=== PATIENT | female | born 1960 | race Caucasian/White ===

== ENCOUNTER 2019-03-14 23:16 | Emergency (ER) | payer BC, MEDICAID ==
[2019-03-14] MEDS ORDERED: Sodium Chloride 0.9% 10 ML Syringe FLUSH PRN ×2 (23:20)
[2019-03-14] MEDS ORDERED: Pantoprazole 40 MG Vial IVPUSH ONE (23:21)
[2019-03-14] MEDS ORDERED: Ondansetron 4 MG/2 ML SDV IVPUSH ONE (23:22)
[2019-03-14] MEDS ORDERED: Pantoprazole 80 MG in Sodium Chloride 0.9% 100 ML IV SCH (23:30)
[2019-03-14] MEDS ORDERED: Sodium Chloride 0.9% 1,000 ML IV SCH (23:30)
--- NOTE | 2019-03-14 23:34 | EDM.PDOC ---
ED HPI GENERAL MEDICAL PROBLEM - General Chief Complaint: Abdominal Pain Stated Complaint: GI BLEED Time Seen by Provider: 03/14/19 23:26 Source of Information: Reports: Patient, EMS, Family History Limitations: Reports: No Limitations - History of Present Illness INITIAL COMMENTS - FREE TEXT/NARRATIVE: Patient presents by EMS for coffee ground emesis x 2 days associated with generalized abdominal pain and decreased appetite. She has a h/o alcohol abuse and associated liver disease. The patient continues to consume @1L hard alcohol every 3 days. Daughter noticed her urine was dark tonight perhaps due to blood, she has also noticed that her mother's has been somewhat more confused over the last 2 days. Daughter and patient deny prior h/o GI bleed. Duration: Day(s): (2) Location: Reports: Abdomen Associated Symptoms: Reports: Nausea/Vomiting - Related Data Allergies Allergy/AdvReac Type Severity Reaction Status Date / Time Sulfa (Sulfonamide Allergy Vomiting Verified 03/15/19 00:29 Antibiotics) Home Meds: Home Meds Levothyroxine Sodium [Synthroid] 62.5 mcg PO MO 09/09/15 [History] Levothyroxine Sodium [Synthroid] 125 mcg PO SUMOTUWETHSA 09/09/15 [History] Venlafaxine [Effexor XR] 150 mg PO DAILY 09/09/15 [History] Montelukast Sodium [Singulair] 10 mg PO DAILY 03/15/19 [History] Potassium Chloride 10 meq PO DAILY 03/15/19 [History] Pravastatin Sodium 20 mg PO BEDTIME 03/15/19 [History] Past Medical History HEENT History: Reports: Other (See Below) Other HEENT History: Wears glasses. Cardiovascular History: Reports: Hypertension. 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 Psychiatric History: Reports: Depression, Other (See Below) Other Psychiatric History: ALCOHOL ABUSE Endocrine/Metabolic History: Reports: Hypothyroidism Dermatologic History: Reports: Other (See Below) Other Dermatologic History: Had a cyst in her neck area, surgically removed. Experiences dry skin. - Infectious Disease History Infectious Disease History: Reports: Chicken Pox, Mumps, Other (See Below) Other Infectious Disease History: States she had measles in the past, uncertain if Burkinan or Red. - Past Surgical History Female Surgical History: Reports: Hysterectomy, Other (See Below) Social & Family History - Family History Family Medical History: Unobtainable - Tobacco Use Smoking Status *Q: Current Every Day Smoker Tobacco Use Within Last Twelve Months: Cigarettes - Alcohol Use Alcohol Use History: Yes Alcohol Use in Last Twelve Months: Yes Alcohol Use Frequency: Daily - Recreational Drug Use Recreational Drug Use: No ED ROS GENERAL - Review of Systems Review Of Systems: ROS reveals no pertinent complaints other than HPI. ED EXAM, GI/ABD - Physical Exam Exam: See Below Exam Limited By: No Limitations General Appearance: Alert, No Apparent Distress Eyes: Bilateral: EOMI (bilateral icteric sclera) Ears: Normal External Exam Nose: Normal Inspection Throat/Mouth: No Airway Compromise Head: Atraumatic, Normocephalic Neck: Normal Inspection, Full Range of Motion Respiratory/Chest: No Respiratory Distress, Lungs Clear, Normal Breath Sounds Cardiovascular: Regular Rate, Rhythm, No Murmur GI/Abdominal Exam: Normal Bowel Sounds, Soft, Distended (mild), Tender (mild generalized). No: Guarding, Rigid, Rebound Extremities: Pedal Edema Neurological: Alert, Oriented, No Motor/Sensory Deficits Psychiatric: Flat Affect Skin Exam: Intact, Jaundice Course - Vital Signs Text/Narrative:: Triage Vitals: T96.7F, BP 107/61, HR 100, Sa02 100%RA 0115: BP 118/67, HR 104, Sa02 100%RA Last Recorded V/S: Last Vital Signs Temp 35.8 C 03/14/19 23:20 Pulse 127 H 03/14/19 23:20 Resp 18 03/14/19 23:20 BP 127/60 03/14/19 23:20 Pulse Ox 100 03/14/19 23:20 - Orders/Labs/Meds Orders: Active Orders 24 hr Category Date Time Status Foreman Catheter Insertion [Insert Urinary Catheter] [OM. Care 03/14/19 23:30 Ordered PC] Q24H Urinary Catheter Assessment [RC] QSHIFT Care 03/14/19 23:27 Active AMMONIA, PLASMA Stat Lab 03/14/19 23:40 Stop Req FRESH FROZEN PLASMA [BBK] Stat Lab 03/15/19 00:05 Received PATIENT RETYPE [BBK] Stat Lab 03/14/19 23:40 Results RED BLOOD CELLS LP [BBK] Stat Lab 03/15/19 00:07 Received TYPE AND SCREEN [BBK] Stat Lab 03/14/19 23:40 Received Pantoprazole [ProTONIX IV] 80 mg Med 03/14/19 23:30 Active Sodium Chloride 0.9% [Normal Saline] 100 ml IV .Continuous Potassium Chloride [KCL 20 MEQ in Water 100 ML] 20 meq Med 03/15/19 00:47 Active Premix Bag 1 bag IV ONETIME Sodium Chloride 0.9% [Normal Saline] 1,000 ml Med 03/14/19 23:30 Active IV ASDIRECTED Sodium Chloride 0.9% [Normal Saline] 250 ml Med 03/15/19 00:15 Active IV ASDIRECTED Sodium Chloride 0.9% [Normal Saline] 250 ml Med 03/15/19 00:15 Active IV ASDIRECTED Sodium Chloride 0.9% [Saline Flush] Med 03/14/19 23:20 Active 10 ml FLUSH ASDIRECTED PRN Sodium Chloride 0.9% [Saline Flush] Med 03/14/19 23:20 Active 10 ml FLUSH ASDIRECTED PRN Saline Lock Insert [OM.PC] Routine Oth 03/14/19 23:20 Ordered Saline Lock Insert [OM.PC] Routine Oth 03/14/19 23:20 Ordered Transfuse Fresh Frozen Plasma [COMM] Stat Oth 03/15/19 00:08 Ordered Transfuse PRBC [Transfuse Red Blood Cells] [COMM] Stat Oth 03/15/19 00:08 Ordered Medication Orders Pantoprazole Sodium 80 mg/ (Sodium Chloride) 100 mls @ 10 mls/hr IV .Continuous HEMALATHA Last Admin: 03/15/19 00:05 Dose: 10 mls/hr Sodium Chloride (Normal Saline) 1,000 mls @ 200 mls/hr IV ASDIRECTED HEMALATHA Last Admin: 03/14/19 23:45 Dose: 200 mls/hr Sodium Chloride (Normal Saline) 250 mls @ 100 mls/hr IV ASDIRECTED HEMALATHA Sodium Chloride (Normal Saline) 250 mls @ 100 mls/hr IV ASDIRECTED HEMALATHA Potassium Chloride 20 meq/ (Premix) 100 mls @ 50 mls/hr IV ONETIME ONE Stop: 03/15/19 02:46 Last Admin: 03/15/19 00:55 Dose: 50 mls/hr Sodium Chloride (Saline Flush) 10 ml FLUSH ASDIRECTED PRN PRN Reason: Keep Vein Open Last Admin: 03/14/19 23:40 Dose: 10 ml Sodium Chloride (Saline Flush) 10 ml FLUSH ASDIRECTED PRN PRN Reason: Keep Vein Open Last Admin: 03/15/19 00:15 Dose: 10 ml Labs: Laboratory Tests 03/14/19 03/14/19 03/14/19 Range/Units 23:19 23:40 23:40 WBC 13.5 H (4.5-12.0) X10-3/uL RBC 2.26 L (3.23-5.20) x10(6)uL Hgb 7.4 L (11.5-15.5) g/dL Hct 22.5 L D (30.0-51.3) % MCV 99.6 H (80-96) fL MCH 32.6 (27.7-33.6) pg MCHC 32.8 (32.2-35.4) g/dL RDW 28.6 H (11.5-15.5) % Plt Count 129 (125-369) X10(3)uL MPV 9.1 (7.4-10.4) fL Add Manual Diff Yes Neutrophils % (Manual) 50 (46-82) % Band Neutrophils % 4 (0-6) % Lymphocytes % (Manual) 38 H (13-37) % Monocytes % (Manual) 8 (4-12) % Anisocytosis Moderate H PT 18.5 H (8.7-11.1) INR 1.92 H (0.89-1.13) Sodium (135-145) mmol/L Potassium (3.5-5.3) mmol/L Chloride (100-110) mmol/L Carbon Dioxide (21-32) mmol/L BUN (7-18) mg/dL Creatinine (0.55-1.02) mg/dL Est Cr Clr Drug Dosing mL/min Estimated GFR (MDRD) (>60) BUN/Creatinine Ratio (9-20) Glucose (80-116) mg/dL Calcium (8.6-10.2) mg/dL Magnesium (1.8-2.5) mg/dL Total Bilirubin (0.1-1.3) mg/dL AST (5-25) IU/L ALT (12-36) U/L Alkaline Phosphatase (56-112) IU/L Total Protein (6.0-8.0) g/dL Albumin (3.5-5.2) g/dL Globulin g/dL Albumin/Globulin Ratio Amylase (25-115) U/L Urine Color Yellow (YELLOW) Urine Appearance Slightly cloudy (CLEAR) Urine pH 5.0 (5.0-6.5) Ur Specific [facility] 1.020 (1.010-1.025) Urine Protein Negative (NEGATIVE) mg/dL Urine Glucose (UA) Normal (NORMAL) mg/dL Urine Ketones 15 H (NEGATIVE) mg/dL Urine Occult Blood Moderate H (NEGATIVE) Urine Nitrite Negative (NEGATIVE) Urine Bilirubin Small H (NEGATIVE) Urine Urobilinogen 1 H (NEGATIVE) mg/dL Ur Leukocyte Esterase Negative (NEGATIVE) Urine RBC 5-10 H (0-5) Urine WBC 0-5 (0-5) Ur Squamous Epith Cells Few H (NS,R,O) Urine Bacteria Few H (NS) Ethyl Alcohol (<0.03) % Blood Type Gel Antibody Screen Crossmatch 03/14/19 03/14/19 03/14/19 Range/Units 23:40 23:40 23:40 WBC (4.5-12.0) X10-3/uL RBC (3.23-5.20) x10(6)uL Hgb (11.5-15.5) g/dL Hct (30.0-51.3) % MCV (80-96) fL MCH (27.7-33.6) pg MCHC (32.2-35.4) g/dL RDW (11.5-15.5) % Plt Count (125-369) X10(3)uL MPV (7.4-10.4) fL Add Manual Diff Neutrophils % (Manual) (46-82) % Band Neutrophils % (0-6) % Lymphocytes % (Manual) (13-37) % Monocytes % (Manual) (4-12) % Anisocytosis PT (8.7-11.1) INR (0.89-1.13) Sodium 131 L (135-145) mmol/L Potassium 1.7 L* (3.5-5.3) mmol/L Chloride 80 L* (100-110) mmol/L Carbon Dioxide 18 L (21-32) mmol/L BUN 7 (7-18) mg/dL Creatinine 1.4 H (0.55-1.02) mg/dL Est Cr Clr Drug Dosing 31.75 mL/min Estimated GFR (MDRD) 39 L (>60) BUN/Creatinine Ratio 5.0 L (9-20) Glucose 76 L (80-116) mg/dL Calcium 9.8 (8.6-10.2) mg/dL Magnesium 1.6 L (1.8-2.5) mg/dL Total Bilirubin 9.6 H (0.1-1.3) mg/dL AST 736 H* (5-25) IU/L ALT 190 H* (12-36) U/L Alkaline Phosphatase 129 H (56-112) IU/L Total Protein 6.7 (6.0-8.0) g/dL Albumin 3.2 L (3.5-5.2) g/dL Globulin 3.5 g/dL Albumin/Globulin Ratio 0.9 Amylase 63 (25-115) U/L Urine Color (YELLOW) Urine Appearance (CLEAR) Urine pH (5.0-6.5) Ur Specific [facility] (1.010-1.025) Urine Protein (NEGATIVE) mg/dL Urine Glucose (UA) (NORMAL) mg/dL Urine Ketones (NEGATIVE) mg/dL Urine Occult Blood (NEGATIVE) Urine Nitrite (NEGATIVE) Urine Bilirubin (NEGATIVE) Urine Urobilinogen (NEGATIVE) mg/dL Ur Leukocyte Esterase (NEGATIVE) Urine RBC (0-5) Urine WBC (0-5) Ur Squamous Epith Cells (NS,R,O) Urine Bacteria (NS) Ethyl Alcohol < 0.03 (<0.03) % Blood Type A POSITIVE Gel Antibody Screen Negative Crossmatch See Detail Meds: Medications Generic Name Dose Route Start Last Admin Trade Name Freq PRN Reason Stop Dose Admin Pantoprazole Sodium 80 mg/ 100 mls @ 10 mls/hr 03/14/19 23:30 03/15/19 00:05 Sodium Chloride IV 10 mls/hr .Continuous HEMALATHA Administration Sodium Chloride 1,000 mls @ 200 mls/hr 03/14/19 23:30 03/14/19 23:45 Normal Saline IV 200 mls/hr ASDIRECTED HEMALATHA Administration Sodium Chloride 250 mls @ 100 mls/hr 03/15/19 00:15 Normal Saline IV ASDIRECTED HEMALATHA Sodium Chloride 250 mls @ 100 mls/hr 03/15/19 00:15 Normal Saline IV ASDIRECTED HEMALATHA Potassium Chloride 20 meq/ 100 mls @ 50 mls/hr 03/15/19 00:47 03/15/19 00:55 Premix IV 03/15/19 02:46 50 mls/hr ONETIME ONE Administration Sodium Chloride 10 ml 03/14/19 23:20 03/14/19 23:40 Saline Flush FLUSH 10 ml ASDIRECTED PRN Administration Keep Vein Open Sodium Chloride 10 ml 03/14/19 23:20 03/15/19 00:15 Saline Flush FLUSH 10 ml ASDIRECTED PRN Administration Keep Vein Open Discontinued Medications Generic Name Dose Route Start Last Admin Trade Name Freq PRN Reason Stop Dose Admin Octreotide Acetate 100 mcg 03/15/19 01:02 Sandostatin IVPUSH 03/15/19 01:03 ONETIME ONE Ondansetron HCl 4 mg 03/14/19 23:22 03/14/19 23:45 Zofran IVPUSH 03/14/19 23:23 4 mg ONETIME ONE Administration Pantoprazole Sodium 80 mg 03/14/19 23:21 03/14/19 23:50 Protonix Iv IVPUSH 03/14/19 23:22 80 mg .BOLUS ONE Administration Thiamine HCl 100 mg 03/14/19 23:42 03/15/19 00:00 Vitamin B-1 IVPUSH 03/14/19 23:43 100 mg ONETIME ONE Administration - Re-Assessments/Exams Free Text/Narrative Re-Assessment/Exam: 03/15/19 01:16 FFP and PRBC transfusion ordered. Dr. Ramirez accepts patient for transfer to [facility], recommends Octreotide 100 mcg IVP. Patient will be transferred by ALS ground. Departure - Departure Time of Disposition: 01:19 Disposition: DC/Tfer to Acute Hospital 02 Condition: Serious Clinical Impression: Upper GI bleed, Hypokalemia, Alcoholic liver disease - Discharge Information *PRESCRIPTION DRUG MONITORING PROGRAM REVIEWED*: No *COPY OF PRESCRIPTION DRUG MONITORING REPORT IN PATIENT GULSHAN: Not Applicable Referrals: PCP,Unknown [Primary Care Provider] - Forms: ED Department Discharge - My Orders Last 24 Hours: My Active Orders 03/14/19 23:20 Sodium Chloride 0.9% [Saline Flush] 10 ml FLUSH ASDIRECTED PRN Sodium Chloride 0.9% [Saline Flush] 10 ml FLUSH ASDIRECTED PRN Saline Lock Insert [OM.PC] Routine Saline Lock Insert [OM.PC] Routine 03/14/19 23:27 Urinary Catheter Assessment [RC] QSHIFT 03/14/19 23:30 Foreman Catheter Insertion [Insert Urinary Catheter] [OM.PC] Q24H Pantoprazole [ProTONIX IV] 80 mg Sodium Chloride 0.9% [Normal Saline] 100 ml IV .Continuous Sodium Chloride 0.9% [Normal Saline] 1,000 ml IV ASDIRECTED 03/14/19 23:40 AMMONIA, PLASMA Stat PATIENT RETYPE [BBK] Stat TYPE AND SCREEN [BBK] Stat 03/15/19 00:05 FRESH FROZEN PLASMA [BBK] Stat 03/15/19 00:07 RED BLOOD CELLS LP [BBK] Stat 03/15/19 00:08 Transfuse Fresh Frozen Plasma [COMM] Stat Transfuse PRBC [Transfuse Red Blood Cells] [COMM] Stat 03/15/19 00:15 Sodium Chloride 0.9% [Normal Saline] 250 ml IV ASDIRECTED Sodium Chloride 0.9% [Normal Saline] 250 ml IV ASDIRECTED 03/15/19 00:47 Potassium Chloride [KCL 20 MEQ in Water 100 ML] 20 meq Premix Bag 1 bag IV ONETIME - Assessment/Plan Last 24 Hours: My Active Orders 03/14/19 23:20 Sodium Chloride 0.9% [Saline Flush] 10 ml FLUSH ASDIRECTED PRN Sodium Chloride 0.9% [Saline Flush] 10 ml FLUSH ASDIRECTED PRN Saline Lock Insert [OM.PC] Routine Saline Lock Insert [OM.PC] Routine 03/14/19 23:27 Urinary Catheter Assessment [RC] QSHIFT 03/14/19 23:30 Foreman Catheter Insertion [Insert Urinary Catheter] [OM.PC] Q24H Pantoprazole [ProTONIX IV] 80 mg Sodium Chloride 0.9% [Normal Saline] 100 ml IV .Continuous Sodium Chloride 0.9% [Normal Saline] 1,000 ml IV ASDIRECTED 03/14/19 23:40 AMMONIA, PLASMA Stat PATIENT RETYPE [BBK] Stat TYPE AND SCREEN [BBK] Stat 03/15/19 00:05 FRESH FROZEN PLASMA [BBK] Stat 03/15/19 00:07 RED BLOOD CELLS LP [BBK] Stat 03/15/19 00:08 Transfuse Fresh Frozen Plasma [COMM] Stat Transfuse PRBC [Transfuse Red Blood Cells] [COMM] Stat 03/15/19 00:15 Sodium Chloride 0.9% [Normal Saline] 250 ml IV ASDIRECTED Sodium Chloride 0.9% [Normal Saline] 250 ml IV ASDIRECTED 03/15/19 00:47 Potassium Chloride [KCL 20 MEQ in Water 100 ML] 20 meq Premix Bag 1 bag IV ONETIME
[2019-03-14] MEDS ORDERED: Thiamine 200 MG/2 ML MDV IVPUSH ONE (23:42)
[2019-03-15] MEDS ORDERED: Sodium Chloride 0.9% 250 ML IV SCH (00:15)
[2019-03-15] MEDS ORDERED: Potassium Chloride 20 MEQ in Premix Bag 1 BAG IV ONE ×2 (00:47→02:29)
[2019-03-15] MEDS ORDERED: Octreotide 100 MCG/ML SDV IVPUSH ONE (01:02)
[2019-03-15] MEDS: Sodium Chloride 0.9% 250 ML IV SCH ×3 (01:15→02:20)
[2019-03-15 03:57] VITALS: BP 110/64; PULSE 102
== END 2019-03-15 02:45 ==
LOC: FB.ED 23:16
DX: K92.2 Gastrointestinal hemorrhage, unspecified (principal); E87.6 Hypokalemia; K70.9 Alcoholic liver disease, unspecified; I10 Essential (primary) hypertension; E03.9 Hypothyroidism, unspecified; F32.9 Major depressive disorder, single episode, unspecified; F17.210 Nicotine dependence, cigarettes, uncomplicated; Z88.2 Allergy status to sulfonamides
CPT/HCPCS: 36415; 36430; 51702; 80053; 80320; 81001; 82150; 83735; 85025; 85610; 86850; 86900; 86901; 86920; 86922; 96365; 96366; 96375; 96376; 99285; C9113; J2354; J2405; J3411; J3480; J7030; J7050; P9016; P9017; 82140; G0480